=== PATIENT | female | born 1960 | race Caucasian/White ===

== ENCOUNTER 2025-04-28 10:05 | Day surgery (SDC) | payer OTHER, SELFPAY ==
[2025-04-28] VITALS (12 sets, daily range): BP systolic 100–152; BP diastolic 67–87; PULSE 63–76; RESP 12–20; TEMP 36.1–37.3; O2SAT 90–99; BMI 44.4
[2025-04-28] MEDS: SODIUM CHLORIDE 0.9 % (FLUSH) 10 ML SYRINGE IVF (10:50)
[2025-04-28] MEDS: LACTATED RINGERS 1000 ML 1,000 ML 100 ML IV (10:50)
[2025-04-28] MEDS: BUPIVACAINE 0.25% 30 ML INJECTION (12:15)
--- NOTE | 2025-04-28 13:48 | P.ANES_ITS ---
Anesthesia Charges Start Date/Time Anesthesia Start Date: 04/28/25 Anesthesia Start Time: 12:02 Stop Date/Time Anesthesia Stop Date: 04/28/25 Anesthesia Stop Time: 13:45 Coding CPT Codes CPT Codes: ANESTH ACHILLES TENDON SURG - 43976 ([id number]) P3 - PATIENT W/SEVERE SYS DISEASE, QK - INFORMATION TECHNOLOGY PROGRAM MANAGER 2-4 CNCRNT ANES PROC, QX - CODING CONSULTANT SVC W/ MD MED DIRECTION
--- NOTE | 2025-04-28 13:48 | W.ANESCHARGE ---
Anesthesia Charges Start Date/Time Anesthesia Start Date: 04/28/25 Anesthesia Start Time: 12:02 Stop Date/Time Anesthesia Stop Date: 04/28/25 Anesthesia Stop Time: 13:45 Coding CPT Codes CPT Codes: ANESTH ACHILLES TENDON SURG - 08294 ([id number]) P3 - PATIENT W/SEVERE SYS DISEASE, QK - STOPE MINER 2-4 CNCRNT ANES PROC, QX - GORE CUTTER SVC W/ MD MED DIRECTION
--- NOTE | 2025-04-28 14:20 | SUR.PHASEI ---
patient met discharge criteria per anesthesia
[2025-04-28] MEDS: LACTATED RINGERS 1000 ML 1,000 ML 50 ML IV (14:34)
--- NOTE | 2025-04-28 14:45 | P.ANES_ITS ---
Anesthesia Charges Start Date/Time Anesthesia Start Date: 04/28/25 Anesthesia Start Time: 12:02 Stop Date/Time Anesthesia Stop Date: 04/28/25 Anesthesia Stop Time: 13:45 Coding CPT Codes CPT Codes: ANESTH ACHILLES TENDON SURG - 20323 ([id number]) QK - MEDICAL AND SCIENTIFIC ILLUSTRATOR 2-4 CNCRNT ANES PROC, QX - STRUCTURAL LAYOUT WORKER SVC W/ MD MED DIRECTION, P3 - PATIENT W/SEVERE SYS DISEASE
--- NOTE | 2025-04-28 14:45 | W.ANESCHARGE ---
Anesthesia Charges Start Date/Time Anesthesia Start Date: 04/28/25 Anesthesia Start Time: 12:02 Stop Date/Time Anesthesia Stop Date: 04/28/25 Anesthesia Stop Time: 13:45 Coding CPT Codes CPT Codes: ANESTH ACHILLES TENDON SURG - 86023 ([id number]) QK - OPERATING ROOM TECHNICIAN 2-4 CNCRNT ANES PROC, QX - LOCOMOTIVE ENGINEER ELECTRIC SVC W/ MD MED DIRECTION, P3 - PATIENT W/SEVERE SYS DISEASE
[2025-04-28] MEDS: OxyCODONE/APAP 5-325 TABLET PO (14:50)
--- NOTE | 2025-04-28 16:02 | W.PODPROC_ITS ---
Date of Procedure: 04/28/25 Surgeon: Chemo Ames DPM Pre-op Diagnosis: 1. calcaneal exostosis with spurring right 2. calcified Achilles tendinitis right Post-op Diagnosis: 1. calcaneal exostosis with spurring right 2. calcified Achilles tendinitis right Type of Procedure: 1. debridement repair Achilles tendon right 2. resection of bony exostosis and spur right calcaneus Indications: patient seen in clinic for ongoing painful calcific Achilles tendinitis with bony spurring. She has elected surgical care. I reviewed the procedure, recovery, expectation potential complications. These include but not limited to: Poor wound healing, infection, continued pain, potential need for future hooks rgery, complex regional pain syndrome, deep venous thrombosis, pulmonary embolism possibly . She understands risks written consent was obtained. Site marked. Procedure Description: Patient brought up room and placed under general anesthesia in the operating room cart. She was then rolled into a well-padded prone position on the operating room table. Standard time-out protocol followed. 30 mL of 0.25% Marcaine plain injected around the posterior calcaneus and Achilles tendon. She was prepped and draped in a sterile fashion. The right limb was exsanguinated and the tourniquet inflated. Linear incision was made over the Achilles tendon insertion. The incision was carried down through skin subcutaneous tissues. Paratenon was identified and incised exposing the Achilles tendon. This tissue layer was reflected away from the tendon both medial and lateral. Next Achilles tendon was split midline and reflected away from a very large exostosis at the insertion both medial and lateral. Large bony spurring was removed with a rongeur initially. This led us to free up more of the Achilles tendon both medial and lateral. Sagittal saw was then used to remove more of the posterior spur. Sagittal saw thus used to remove the enlarged posterior superior tubercle. C-arm images confirmed areas that needed additional attention. Using a power rasp posterior calcaneus was remodeled fully. Wound was irrigated with normal sterile saline. C-arm images confirmed excellent resection of all bony spurring. The Achilles tendon was then debrided of all abnormal tendon and thickness using a scalpel. Once debridement was complete 4.75 mm SwiveLock anchor was placed superior lateral and superior medial into the calcaneus. Jaylon chang the preloaded with FiberTape was the medial anchor was passed through the medial slip of the Achilles tendon and the tendon anchor down to the bone. the FiberTape from the lateral anchor was passed through the lateral slip of tendon and this tendon was anchored down to bone. The medial split of the Achilles tendon was then repaired with 3-0 Vicryl. Taking 1 suture from the lateral anchor and 1 suture from the medial anchor these were brought together and a 4.75 mm SwiveLock anchor placed inferior medial further anchoring the tendon down in place. Taking 1 suture from the lateral anchor and 1 suture from the medial anchor these were brought together in a 4.75 mm SwiveLock anchor placed inferior lateral further anchoring this portion of the tendon down in place. Wound was irrigated with normal sterile saline. Paratenon was repaired with 4-0 Vicryl. Subcutaneous tissues reapproximated with 4-0 Monocryl and skin closed with 4-0 Prolene. Sterile dressing was applied. She tourniquet released normal capillary fill time returned to all digits. She was placed in a well padded [id number] plaster splint and slightly plantar flexed position. She was transferred from OR to PACU vital signs stable and vascular status intact. She will be discharged home per same-day surgery. She is given oxycodone for pain. She is nonweightbearing. Follow-up in 2 days. Anesthesia: GETA and local Hemostasis: thigh Estimated blood loss (mL): 5 Provider Operated C-arm: C-arm was utilized today to take images for Achilles repair and calcaneal exostosis resection by Chemo Aems DPM. total of 12 spot images were obtained. Total fluoro time was 00.00.10. Implants: [employer] SpeedBridge kit x1. Specimens: none sent Disposition: PACU
== END 2025-04-28 15:38 | disposition home or self-care (01) ==
PROVIDERS: PCP Family Medicine; Visit Provider Podiatrist
PROC: (CPT 27650; principal; 2025-04-28 11:15)
DX: M76.61 Achilles tendinitis, right leg (principal); M77.31 Calcaneal spur, right foot; M79.671 Pain in right foot
CPT/HCPCS: 27654; 28118; 01472; 73650; 76000; A9270; C1713; J0330; J0665; J0690; J1100; J2371; J2405; J2704; J3010; J3490; J7120